=== PATIENT | male | born 1995 | race Caucasian/White ===

== ENCOUNTER 2018-05-09 01:53 | Emergency (ER) | payer BC ==
[~2018-05-09] VITALS: Ht 165.1 cm; Wt 68.4 kg
[2018-05-09 01:57] VITALS: TEMP 36.5; Ht 165.1 cm; Wt 68.4 kg
[2018-05-09] MEDS ORDERED: RABIES IMMUNE GLOBULIN 300 UNIT/ML INJ IM. ONE (02:15)
[2018-05-09] MEDS ORDERED: RABIES VACCINE (IMOVAX) HUMAN DIPL CELL 2.5 INTER.UNIT/ML SYR IM. ONE (02:15)
[2018-05-09 02:56] VITALS: BP 122/70; PULSE 79; O2SAT 97
--- NOTE | 2018-05-09 06:56 | EMERGENCY ROOM VISIT NOTE ---
ED Visit Note First contact with patient: 02:02 CHIEF COMPLAINT: Rabies exposure HISTORY OF PRESENT ILLNESS: This 22 year old male patient presents to the emergency department with complaint of possible rabies exposure. The patient states that he was asleep in his apartment, and when he awoke there was a bat in the room. The patient does not have obvious injury or trauma. He was concerned for possible exposure. He is reportedly up-to-date on his tetanus and otherwise healthy. REVIEW OF SYSTEMS: A 6 system review of systems was completed with positives and pertinent negatives listed in the HPI. ALLERGIES: NKDA MEDICATIONS: None PMH: Otherwise healthy. SOCIAL HISTORY: Student living locally. PHYSICAL EXAM: Vital Signs: Reviewed Nurse's notes, vital signs stable. GENERAL : White male, in no acute distress, well-developed, well-nourished. HEAD: Atraumatic, without temporal or scalp tenderness. EYES: PERRLA, EOMI, no discharge or injection. SKIN: No obvious blood or skin injury. Capillary refill less than 2 seconds. NEUROLOGICAL: Alert and oriented to person place and time. Normal sensation to light and sharp touch. MUSCULOSKELETAL: Motor functions grossly intact of the upper and lower extremities. Full range of motion. EMERGENCY DEPARTMENT COURSE: I examined the patient. The patient was given RIG 20 Units/kg. The patient was given Immovax 1ml IM. The patient was observed for 20 minutes with no reaction. The patient was discharged home in stable condition with instructions as below. Current/Historical Medications No Active Prescriptions or Reported Meds Allergies Coded Allergies: No Known Allergies (Unverified , 05/09/18) Vital Signs Date Time Temp Pulse Resp B/P (MAP) Pulse Ox O2 Delivery O2 Flow Rate FiO2 05/09/18 02:56 79 16 122/70 97 Room Air 05/09/18 01:57 36.5 82 16 132/83 97 Room Air Medications Administered Medications (Trade) Dose Ordered Sig/Yari Route Start Time Stop Time Status Last Admin Dose Admin Rabies Vaccine Human Diploid Cell (Imovax Rabies) 2.5 interunit ONCE ONCE IM. 05/09/18 02:15 05/09/18 02:16 DC 05/09/18 02:40 2.5 INTERUNIT Rabies Immune Globulin (HyperRAB) 1,368 unit ONCE ONCE IM. 05/09/18 02:15 05/09/18 02:16 DC 05/09/18 02:38 1,368 UNIT Departure Information Impression Primary Impression: Need for post exposure prophylaxis for rabies Dispostion Home / Self-Care Condition GOOD Prescriptions No Active Prescriptions or Reported Meds Referrals No Doctor, Assigned [facility] (PCP) Forms HOME CARE DOCUMENTATION FORM, IMPORTANT VISIT INFORMATION Patient Instructions Rabies, My [facility] Additional Instructions You were seen and evaluated today on an emergency basis only. This is not a substitute for, or an effort to provide, complete comprehensive medical care. It is not possible to recognize and treat all injuries or illnesses in a single emergency department visit. For this reason it is recommended that you followup with The emergency department for repeat immunizations as follows Day 3: Sunday05/12/2018 Day 7: 05/16/2018 Day 14: 05/23/2018 You are welcome to return to the emergency department anytime with new, worsening, or concerning symptoms.
== END 2018-05-09 02:57 | disposition home or self-care (01) ==
LOC: C.EDB 01:54 → C.EDA 02:57
DX: Z20.3 Contact with and (suspected) exposure to rabies (principal); Z23 Encounter for immunization; W55.89XA Other contact with other mammals, initial encounter

== ENCOUNTER 2018-05-12 13:59 | Emergency (ER) | payer BC ==
[~2018-05-12] VITALS: Ht 165.1 cm; Wt 68.6 kg
[2018-05-12 14:02] VITALS: BP 124/76; PULSE 66; TEMP 36.8; O2SAT 97; Ht 165.1 cm; Wt 68.6 kg
[2018-05-12] MEDS ORDERED: RABIES VACCINE (IMOVAX) HUMAN DIPL CELL 2.5 INTER.UNIT/ML SYR IM. ONE (15:00)
--- NOTE | 2018-05-12 15:28 | EMERGENCY ROOM VISIT NOTE ---
ED Visit Note First contact with patient: 14:28 CHIEF COMPLAINT: Rabies prophylaxis HISTORY OF PRESENT ILLNESS: This 22-year-old male patient presents to the emergency department by private vehicle for their second rabies shot. The patient has not had any complications from the previous injections. They deny any other complaints. REVIEW OF SYSTEMS: A 6 system review of systems was completed with positives and pertinent negatives listed in the HPI. ALLERGIES: No known allergies. MEDICATIONS: No current medications PMH: Unchanged from previous visit. PHYSICAL EXAM: Vital Signs: Reviewed Nurse's notes, vital signs stable. GENERAL : Pleasant and cooperative, in no acute distress, well-developed, well- nourished. HEAD: Atraumatic, without temporal or scalp tenderness. EYES: PERRLA, EOMI, no discharge or injection. SKIN: Normal. NEUROLOGICAL: Alert and cooperative. Sensory and motor functions grossly intact. EMERGENCY DEPARTMENT COURSE: I examined the patient. The patient was given a Imovax 1ml IM. The patient was observed for 20 minutes with no reaction. The patient was discharged home in stable condition. Current/Historical Medications No Active Prescriptions or Reported Meds Allergies Coded Allergies: No Known Allergies (Unverified , 05/09/18) Vital Signs Date Time Temp Pulse Resp B/P (MAP) Pulse Ox O2 Delivery O2 Flow Rate FiO2 05/12/18 14:02 36.8 66 18 124/76 97 Room Air Medications Administered Medications (Trade) Dose Ordered Sig/Yari Route Start Time Stop Time Status Last Admin Dose Admin Rabies Vaccine Human Diploid Cell (Imovax Rabies) 2.5 interunit ONCE ONCE IM. 05/12/18 15:00 05/12/18 15:01 DC 05/12/18 15:35 2.5 INTERUNIT Departure Information Impression Primary Impression: Encounter for repeat administration of rabies vaccination Dispostion Home / Self-Care Condition GOOD Prescriptions No Active Prescriptions or Reported Meds Referrals [facility] (PCP) Patient Instructions My [facility], Rabies Additional Instructions You received your second rabies vaccination today. Continue vaccination schedule as directed. Your next visit should be in 4 days on 05/16/2018. Return sooner for any complications.
== END 2018-05-12 15:50 | disposition home or self-care (01) ==
LOC: C.EDB 14:01 → C.EDD 15:50
DX: Z23 Encounter for immunization (principal); Z20.3 Contact with and (suspected) exposure to rabies

== ENCOUNTER 2018-05-16 07:05 | Emergency (ER) | payer BC ==
[~2018-05-16] VITALS: Ht 175.3 cm; Wt 67.5 kg
[2018-05-16 07:14] VITALS: BP 116/69; PULSE 69; TEMP 36.7; O2SAT 96; Ht 175.3 cm; Wt 67.5 kg
[2018-05-16] MEDS ORDERED: RABIES VACCINE (IMOVAX) HUMAN DIPL CELL 2.5 INTER.UNIT/ML SYR IM. ONE (07:30)
--- NOTE | 2018-05-16 07:31 | EMERGENCY ROOM VISIT NOTE ---
ED Visit Note First contact with patient: 07:23 CHIEF COMPLAINT: "Rabies vaccine repeat visit HISTORY OF PRESENT ILLNESS: This 22-year-old male" patient presents to the emergency department via private vehicle for their subsequent rabies shot. The patient has not had any complications from the previous injections. They deny any other complaints. REVIEW OF SYSTEMS: A 6 system review of systems was completed with positives and pertinent negatives listed in the HPI. ALLERGIES: None MEDICATIONS: As noted below PMH: Unchanged from previous visit. PHYSICAL EXAM: Vital Signs: Reviewed Nurse's notes, vital signs st. EYES: Sclera anicteric. SKIN: Normal. NEUROLOGICAL: Alert and cooperative. Sensory and motor functions grossly intact. EMERGENCY DEPARTMENT COURSE: I examined the patient. The patient was given 2.5 IU/ 1ml IM of Imovax. The patient was observed for 20 minutes with no reaction. The patient was discharged home in stable condition. Current/Historical Medications No Active Prescriptions or Reported Meds Allergies Coded Allergies: No Known Allergies (Unverified , 05/16/18) Vital Signs Date Time Temp Pulse Resp B/P (MAP) Pulse Ox O2 Delivery O2 Flow Rate FiO2 05/16/18 07:14 36.7 69 20 116/69 96 Room Air Medications Administered Medications (Trade) Dose Ordered Sig/Yari Route Start Time Stop Time Status Last Admin Dose Admin Rabies Vaccine Human Diploid Cell (Imovax Rabies) 2.5 interunit ONCE ONCE IM. 05/16/18 07:30 05/16/18 07:31 DC 05/16/18 07:35 2.5 INTERUNIT Departure Information Impression Primary Impression: Rabies, need for prophylactic vaccination against Dispostion Home / Self-Care Condition GOOD Prescriptions No Active Prescriptions or Reported Meds Referrals [facility] (PCP) Patient Instructions My [facility] Additional Instructions You were seen in the emergency department for your subsequent rabies vaccination. Please continue to follow the directions given an initial handout. Any difficulties or concerns please return.
== END 2018-05-16 07:53 | disposition home or self-care (01) ==
LOC: C.EDB 07:06 → C.EDA 07:53
DX: Z23 Encounter for immunization (principal); Z20.3 Contact with and (suspected) exposure to rabies